=== PATIENT | female | born 1970 | race Caucasian/White ===

== ENCOUNTER 2023-12-31 18:59 | Emergency (ER) | payer BC ==
[~2023-12-31] VITALS: Ht 170.2 cm; Wt 68.0 kg
[2023-12-31 19:03] VITALS: BP 120/87; PULSE 94; RESP 20; TEMP 98.3; O2SAT 100
[2023-12-31 20:31] VITALS: O2SAT 100
[2023-12-31] MEDS ORDERED: FLUORESCEIN OPTH STRIP 1 MG ONE (21:51)
[2023-12-31] MEDS ORDERED: TETRACAINE HCL/PF 0.5% OPTH 4 ML BTL ONE (21:51)
[2023-12-31] MEDS: TETRACAINE HCL/PF 0.5% OPTH 4 ML BTL OP ONE (21:56)
[2023-12-31] MEDS: FLUORESCEIN OPTH STRIP 1 MG OP ONE (21:56)
[2023-12-31] MEDS ORDERED: AMOX-1230 PO (21:58)
[2023-12-31] MEDS ORDERED: ERYT5OIN51 OP (22:03)
== END 2023-12-31 22:07 | disposition home or self-care (01) ==
LOC: MED 18:59
DX: L03.213 Periorbital cellulitis (principal); Z79.899 Other long term (current) drug therapy
CPT/HCPCS: 70480; 99284